=== PATIENT | male | born 1990 | race Two or more races ===

== ENCOUNTER 2018-07-14 16:30 | Emergency (ER) | payer OTHER ==
[~2018-07-14] VITALS: Ht 167.6 cm; Wt 81.6 kg
--- NOTE | 2018-07-14 17:16 | NUR ---
ED Nurse Note:pt. reported hurting his right ankle at work today , x-ray was done
--- NOTE | 2018-07-14 17:16 | Emergency Room Report ---
History of Present Illness General Chief Complaint: Lower Extremity Injury Source: Patient Present Illness HPI 27-year-old male with no significant past medical history complaining of right ankle pain after twisting injury at work today. Patient is rating the pain 7 out of, intermittent, without radiation, denies tingling and numbness. Patient has been applying ice however has not a medication for pain. Denies other injury, head trauma, chest pain, SOB, palpitations, nausea vomiting, no other associated symptoms Allergies: Coded Allergies: No Known Allergies (Unverified , 07/14/18) Patient History Past Medical History: see triage record Past Surgical History: none Pertinent Family History: none Immunizations: UTD Reviewed Nursing Documentation: PMH: Agreed; PSxH: Agreed Nursing Documentation-PMH Past Medical History: No Stated History Review of Systems All Other Systems: negative except mentioned in HPI Physical Exam Vital Signs Date Time Temp Pulse Resp B/P (MAP) Pulse Ox O2 Delivery O2 Flow Rate FiO2 07/14/18 16:56 98.8 63 21 124/76 97 Room Air Sp02 EP Interpretation: reviewed, normal General Appearance: normal inspection, well appearing, no apparent distress Head: normocephalic, atraumatic Eyes: bilateral eye normal inspection, bilateral eye PERRL ENT: normal ENT inspection, hearing grossly normal Neck: normal inspection, full range of motion Respiratory: normal inspection, chest non-tender, lungs clear Cardiovascular #1: normal inspection, regular rate, rhythm, no edema, no murmur , normal capillary refill Cardiovascular #2: 2+ dorsalis pedis (R), 2+ dorsalis pedis (L) Gastrointestinal: normal inspection, soft Rectal: deferred Genitourinary: no CVA tenderness Musculoskeletal: back normal, swelling - right lateral ankle Neurologic: normal inspection, alert, oriented x3 Psychiatric: normal inspection, judgement/insight normal Skin: normal inspection, normal color, no rash, warm/dry Lymphatic: normal inspection, no adenopathy Medical Decision Making PA Attestation All diagnoses and treatment plans were discussed with my supervising physician Dr. Carroll Diagnostic Impression: Primary Impression: Right ankle sprain ER Course 27-year-old male with no significant past medical history complaining of right ankle pain after twisting injury at work today. Patient is rating the pain 7 out of, intermittent, without radiation, denies tingling and numbness. Patient has been applying ice however has not a medication for pain. Denies other injury, head trauma, chest pain, SOB, palpitations, nausea vomiting, no other associated symptoms Ddx considered but are not limited to right ankle sprain, right ankle fracture, right ankle strain Vital signs: are WNL, pt. is afebrile H&PE are most consistent with ORDERS:right ankle x-ray, naproxen, crutches ED INTERVENTIONS: None required at this time. DISCHARGE: At this time pt. is stable for d/c to home. Will provide printed patient care instructions, and any necessary prescriptions. Care plan and follow up instructions have been discussed with the patient prior to discharge. Other X-Ray Diagnostic Results Other X-Ray Diagnostic Results : X-Ray ordered: right ankle # of Views/Limited Vs Complete: 3 View Indication: Pain EP Interpretation: Yes PA Xray: Interpretation reviewed, by supervising MD, and agrees with findings. Interpretation: no dislocation, no fractures Impression: No acute disease Electronically Signed by: natividad SYED Scribe Text FINDINGS: No fracture or dislocation. Anterior and lateral ankle soft tissue swelling. IMPRESSION: No fracture or dislocation. Anterior and lateral ankle soft tissue swelling. Last Vital Signs Date Time Temp Pulse Resp B/P (MAP) Pulse Ox O2 Delivery O2 Flow Rate FiO2 07/14/18 16:56 98.8 63 21 124/76 97 Room Air Disposition: HOME, SELF-CARE Condition: Stable Referrals: NOT CHOSEN IPA/,REFERRING (PCP) Patient Instructions: Ankle Sprain Additional Instructions: take medication as directed, elevates your leg, alternatives and icing and heating, if pain continues follow with the primary care provider for further imaging and possible physical therapy keep Daryl wrap on. Natividad Gutierrez Jul 14, 2018 17:16
--- NOTE | 2018-07-14 17:21 | Diagnostic Imaging Report ---
History: TRAUMA Exam: XR RIGHT ANKLE 3 views Comparison: None available FINDINGS: No fracture or dislocation. Anterior and lateral ankle soft tissue swelling. IMPRESSION: No fracture or dislocation. Anterior and lateral ankle soft tissue swelling.
[2018-07-14] MEDS ORDERED: NAPROXEN500 M2 ORAL (17:25)
[2018-07-14 17:54] VITALS: BP 124/76
--- NOTE | 2018-07-14 17:55 | NUR ---
ED Nurse Note:pt. receved d/c instructions with prescriptions and work miscomp papers and left eR with steady gait
== END 2018-07-14 17:56 | disposition home or self-care (01) ==
LOC: EMR 16:50
DX: S93.401A Sprain of unspecified ligament of right ankle, initial encounter (principal); X50.1XXA Overexertion from prolonged static or awkward postures, initial encounter; Y93.9 Activity, unspecified; Y92.89 Other specified places as the place of occurrence of the external cause; Y99.0 Civilian activity done for income or pay
CPT/HCPCS: 99283